=== PATIENT | female | born 2000 | race Caucasian/White ===

== ENCOUNTER 2024-09-09 10:00 | Emergency (ER) | payer OTHER, SELFPAY ==
[2024-09-09 10:11] VITALS: BP 121/60; PULSE 88; RESP 16; TEMP 36.6; O2SAT 100
[2024-09-09 10:16] VITALS: BP 121/60; PULSE 88; RESP 16; TEMP 36.6; O2SAT 100
--- NOTE | 2024-09-09 11:02 | ED_ITS ---
HPI - URI/Sore Throat General Chief Complaint: Upper Respiratory Infection Stated Complaint: cough and chest pain Time Seen by Provider: 09/09/24 10:32 Source: patient and RN notes reviewed Mode of arrival: ambulatory Limitations: no limitations History of Present Illness HPI Narrative: Patient presents today complaining of a one-month history of cold symptoms. She was seen initially, diagnosed with a sinus infection, and prescribed a course of Augmentin which she finished approximately 6 days ago. Five days ago her cough worsened. She also has persistent nasal congestion and headache. She has been taking Mucinex DM and using cough drops with very mild relief. Denies shortness of breath or fever. She is currently 22 weeks Related Data Home Medications Medication Instructions Recorded Confirmed sertraline 100 mg tablet 100 mg DAILY 09/09/24 09/09/24 Allergies Allergy/AdvReac Type Severity Reaction Status Date / Time latex Allergy Hives Verified 09/09/24 10:15 Review of Systems Review of Systems: CONSTITUTIONAL: Denies body aches, fever, chills, or sweats. EYES: Denies visual changes, redness, or discharge. ENT: Denies rhinorrhea, sore throat, or otalgia.+ congestion CARDIOVASCULAR: Denies chest pain, palpitations, or edema. RESPIRATORY: Denies dyspnea.+ cough GASTROINTESTINAL: Denies abdominal pain, nausea, vomiting, or diarrhea. GENITOURINARY: Denies dysuria or hematuria. SKIN: Denies rash, itching, or wounds. MUSCULOSKELETAL: Denies back pain, joint pain, or myalgia. NEUROLOGIC: Denies numbness, tingling, or weakness.+ headache PSYCH: Denies depression or anxiety. PMFSH Comments At time of signature, I have reviewed and agree with nursing past medical, surgical, social and family history unless otherwise noted. Please see nursing chart for further information. There is no relevant family history pertinent to the presenting complaint Exam 2 Narrative: GENERAL: Mildly ill-appearing, well-nourished, and in no acute distress. HEAD: Normocephalic, atraumatic. EYES: EOMI. No redness or drainage. Conjunctivae normal. ENT: Mucous membranes pink and moist. Nares congested. No rhinorrhea. TMs normal bilaterally. Throat normal. Uvula midline. NECK: Normal AROM. Supple. No lymphadenopathy. CHEST: No respiratory distress. Clear to auscultation. Frequent very harsh, loud cough. HEART: Regular rate and rhythm. No murmur appreciated. Normal peripheral pulses. ABDOMEN: Soft, nontender, nondistended, normal active bowel sounds. MUSCULOSKELETAL: No bony tenderness. EXTREMITIES: Normal range of motion. No edema. SKIN: Warm, dry, no rash. Capillary refill normal. Normal skin turgor. NEURO: No focal deficits. Alert and oriented x3. Gait steady. PSYCH: Normal affect. No signs of depression or anxiety. Course Course Level of Care: Express Care Visit Vital Signs Vital signs: Vital Signs Temperature 97.9 F 09/09/24 10:11 Pulse Rate 88 09/09/24 10:11 Respiratory Rate 16 09/09/24 10:11 Blood Pressure 121/60 09/09/24 10:11 Pulse Oximetry 100 09/09/24 10:11 Oxygen Delivery Room Air 09/09/24 10:11 Temperature 97.9 F 09/09/24 10:16 Pulse Rate 88 09/09/24 10:16 Respiratory Rate 16 09/09/24 10:16 Blood Pressure 121/60 09/09/24 10:16 Pulse Oximetry 100 09/09/24 10:16 Oxygen Delivery Room Air 09/09/24 10:16 Reviewed MDM - URI/Sore Throat MDM Narrative Medical decision making narrative: Patient will be treated with a course of azithromycin and a Medrol Dosepak for possible atypical pneumonia and bronchitis. Anticipatory guidance given. Differential Diagnosis Differential diagnosis: Likely upper respiratory infection, sinusitis, viral infection, bronchitis and other (Pneumonia) Critical Care Time Critical Care Time Critical Care Time: No Discharge Plan Discharge Clinical Impression: Lower respiratory infection Patient Disposition: Home, Self-Care Condition: Stable Instructions: Acute Bronchitis (ED) Additional Instructions: Please take the Medrol Dosepak and azithromycin as directed. Rest and stay hydrated. Follow-up with your PCP or OBGYN in 2-3 days if symptoms are not improving. Your blood pressure was elevated above 120/80 today at Urgent Care. This puts you above the threshold for follow up. Please schedule a followup visit with your personal physician as soon as possible, for further evaluation and treatment. Even blood pressure exceeding 120/80 may indicate pre-hypertension. Prescriptions: New azithromycin 250 mg tablet 250 mg PO DAILY Qty: 6 0RF Rx Instructions: take 500 mg today (day 1), then 250 mg daily on days 2-5. methylprednisolone [Medrol (Michael)] 4 mg tablets,dose pack See Rx Instructions .ROUTE .COMPLEX Qty: 21 0RF Rx Instructions: orally per package directions No Action sertraline 100 mg tablet 100 mg DAILY Follow-up/Referrals: PHYSICIAN,[employer] [Primary Care Provider] - Time of Disposition: 11:00
== END 2024-09-09 11:03 | disposition home or self-care (01) ==
PROVIDERS: Emergency Provider Nurse Practitioner
DX: O99.512 Diseases of the respiratory system complicating pregnancy, second trimester (principal); Z3A.22 22 weeks gestation of pregnancy; J22 Unspecified acute lower respiratory infection
CPT/HCPCS: 99203; G0463

== ENCOUNTER 2025-05-04 19:43 | Emergency (ER) | payer OTHER, SELFPAY ==
--- NOTE | ~2025-05-04 | XR_ITS ---
EXAM: XR foot RT min 3V DATE: 05/04/2025 20:01 HISTORY: fell, pain 4th and 5th mid metatarsals . COMPARISON: None available. FINDINGS: Normal mineralization. Cortical irregularity/lucency over the cuboid. No lytic or blastic lesion. Joint spaces are maintained. No erosion or periosteal change. Soft tissues within normal limi ts. IMPRESSION: Possible nondisplaced cuboid fracture. Reviewed, dictated and finalized at location K.
--- OUTSIDE RECORDS SUMMARY | 2025-05-04 19:45 | XMS_ITS | Clinical Summary ---
Author Organization [facility] Address [address] [place] [address] Care Team Providers Care Supervisor Liquefaction Name Role Phone None, Provider MD Primary Care Provider Unavaila ble Allergies Active Allergy Reactions Criticality Noted Date Comments Latex Unknown 06/24/2022 Medications LESSINA-28 0.1-20 MG-MCG tabletIndicatio ns:PCOS (polycystic ovarian syndrome) Take 1 tablet by mouth daily. 84 tablet 3 1 Active metFORMIN 500 MG tabletIndicatio ns:PCOS (polycystic ovarian syndrome) Take 1 tablet (500 mg total) by mouth 2 (two) times daily. 180 tablet 3 1 Active sertraline (ZOLOFT) 50 MG tabletIndicatio ns:Anxiety,Recu rrent major depressive disorder, in partial remission Take 1 tablet (50 mg total) by mouth daily. 30 tablet 1 1 Active Additional Information Patient taking differently: 100 mgOral Daily, Reported on 06/24/2022 fluticasone propionate (FLONASE) 50 MCG/ACT nasal spray 1-2 sprays by Nasal route daily. 1-2 sprays in each nostril qd; Start: 2 sprays in each nostril qd x1wk; Max: 2 sprays in each nostril/day 16 g 2 Active Active Problems Problem Noted Date Diagnosed Date Closed nondisplaced fracture of neck of right ta jyoti 01/31/2018 Immunizations Immunization Administration Dates Next Due Comvax 01/03/2002 DTaP (Daptacel) 03/07/2007, 3,01/03/2002,05/2002,2001 Hepatitis A (Generic) 04/28/2017,06/20/2013 Hepatitis B 04/28/2017,2001,2001 Hib (Generic) 03/22/2013, 3,2001,08/05 Influenza (Generic) 07/21/2018, 7,07/11/2015,08/03,07/17/2013 MENINGOCOCCAL A C Y&W-135 oligosaccharide (MENVEO) 06/20/2013 MMR 07/09/2002 Menactra 06/28/2019 Meningcoccal Group B (Bexser o)(aka Meningitis) 06/28/2019 Pneumococcal (Prevnar 7) 10/09/2002,12/2001,2001,08/05 Polio IPV (Ipol) 03/08/2007, 3,2001,08/05 Tdap (Adacel) 03/22/2013 Varicella Vaccine 07/09/2002 Varicella/MMR (Proquad) 03/07/2007 Family History Medical History Relation Comments Anxiety Maternal Aunt Heart Disease Maternal Grandfather Diabetes Maternal Grandmother Heart Disease Maternal Grandmother Anxiety Maternal Uncle Anxiety Mother Mental Health Paternal Aunt Diabetes Paternal Grandfather Heart Disease Paternal Grandfather Relation Status Comments Maternal Aunt Maternal Grandfather Maternal Grandmother Maternal Uncle Mother Paternal Aunt Paternal Grandfather Social History Tobacco Use Types Packs/Day Years Used Date Smoking Tobacco: Never Smokeless Tobacco: Never Tobacco Cessation:Counseling Given: No Alcohol Use Standard Drinks/Week Comments No 0 (1 standard drink = 0.6 oz pur e alcohol) AUDIT-C Answer Date Recorded Frequency of Alcohol Consumption Never 09/20/2018 Average Number of Drinks Not on file 018 Frequency of Binge Drinking Not on file 09/02 PHQ-2 Answer Date Recorded PHQ-2 Score - If the patient scores above 3, please move on to questions 3-9 0 08/14/2021 Comments No Sex and Gender Information Value Date Recorded Sex Assigned at Not on file Legal Sex Female 5:35 PM CDT Gender Identity Not on file Sexual Orientation Not on file Last Filed Vital Signs Vital Sign Reading Time Taken Comments Blood Pressure 142/82 07/19/2022 1:20 PM CDT Pulse 76 07/19/2022 1:20 PM CDT Temperature 36.8 C (98.2 F) 07/19/2022 1:20 PM CDT Respiratory Rate 18 07/19/2022 1:20 PM CDT Oxygen Saturation 98% 07/19/2022 1:20 PM CDT Inhaled Oxygen Concentration - - Weight 86.2 kg (190 lb) 07/19/2022 1:20 PM CDT Height 162.6 cm (5' 4) 07/19/2022 1:20 PM CDT Body Mass Index 32.61 07/19/2022 1:20 PM CDT Plan of Treatment Health Maintenance Due Date Last Done Comments Cervical Cancer Screening Pap Smear (Age 21 to 29) Every 3 Years 2001 Cervical Cancer Screening 2001 HPV Vaccines (1 - 3-dose series) 2016 Hepatitis C 2019 Meningococcal B Vaccine (2 of 2 - Bexsero SCDM 2-dose series) 12/27/2019 06/28/2019 Annual Physical 05/22/2021 05/22/2020 DTaP, Tdap and Td Vaccines (7 - Td or Tdap) 03/22/2023 03/22/2013, 03/07/2007, 10/09/2002, Additional history exists COVID-19 Vaccine ( season) 2024 Pneumococcal Vaccine: Pediatrics (0 to 5 Years) and At-Risk Patients (6 to 49 Years) Aged Out 10/09/2002, 01/03/2002, 2001, Additional history exists No longer eligible based on patient's age to complete this topic Hepatitis B Vaccines Completed 04/28/2017, 01/03/2002, 2001, Additional history exists Meningococcal Vaccine Completed 06/28/2019, 013 RSV Immunizations Under 20 Months Aged Out No longer eligible based on patient's age to complete this topic Insurance [facility] Care Teams Supervisor Liquefaction Relationship Specialty Start Date End Date None, Provider, PCP - General 06/24/22
--- OUTSIDE RECORDS SUMMARY | 2025-05-04 19:45 | XMS_ITS | Clinical Summary ---
Author Organization [facility] at [facility] Office Building Address [address] [place] [id number] Care Team Providers Care Metallurgical Engineering Technician Name Role Phone No, Physician Primary Care Provider [phone] Mallory Barker CHIROPRACTIC NEUROLOGIST Unavailable [phone] [phone] Active Allergy Reactions Criticality Noted Date Comments Latex Hives Medium 08/06/2022 Medications vit [id number] lopez 27mg iron- 800 mcg-250 mg capsule Take by mouth Active acetaminophen 500 mg capsule Take 2 capsules (1,000 mg total) by mouth every 6 (six) hours as needed for pain 30 tablet 1 12/30/2024 Active ibuprofen (ADVIL,MOTRIN) 800 mg tabletIndicatio ns:Cramps Take 1 tablet (800 mg total) by mouth every 8 (eight) hours as needed for pain 30 tablet 1 12/30/2024 Active sertraline (ZOLOFT) 100 mg tabletIndicatio ns:Anxiety in in first trimester, antepartum TAKE 1 TABLET(100 MG) BY MOUTH DAILY 30 tablet 4 03/04/2025 Active Active Problems Problem Noted Date Diagnosed Date Hx of section 08/29/2024 Acute nonintractable headache 11/15/2023 PCOS (polycystic ovarian syndrome) 08/06/2022 Obesity (BMI 30-39.9) 08/06/2022 Recurrent UTI 08/06/2022 Generalized anxiety disorder 10/28/2021 Resolved Problems Problem Noted Date Diagnosed Date Resolved Date Full-term premature rupture of membranes with onset of labor more than 24 hours following rupture 12/28/2024 12/30/2024 Overview (12/30/2024): 12/28/2024 (Nicci): Patient experienced a large gush of fluid overnight at home, and continued to leak fluid over a few hours. Eventually, the leaking fluid slowed down and labor had not started. She called this morning and asked to come in for evaluation. On bedside ultrasound there does appear to be a reasonable amount of residual amniotic fluid. On speculum exam there was no pooling and a ROM plus was negative. However, we had the patient put on a pad and start walking around and immediately began obviously leaking fluid. Delivery with history of 12/28/2024 12/30/2024 37 weeks gestation of 12/28/2024 12/30/2024 Supervision of other normal , antepartum 06/13/2024 12/30/2024 Overview (12/30/2024): Surveillance of - Only sees Dr. Chapa and Dr. Grajeda EDC by LMP = 9wk US O+/I/-/-, HepC, HIV NR Genetics: Declines Anatomy: 08/29 - incomplete heart/face/profile views, normal, LGA (91%ile), posterior placenta. (/) EFW 81%, anatomy complete. GCT: 125 3rd trim 11.1/33.9, NR/NR Tdap: 11/07 GBS: Negative 12/19 COVID Vaccine: received. Flu declined. 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 - has formulated a vaginal and belly /C/S plans - will review and scan to chart at next visit (12/05) Desires intermittent monitoring until active labor - ok with remote novi monitoring if working or additional monitoring for any concerns Ok with epidural - but does not want till active labor as wants to be able to move around as much as possible in labor; understands risk that if were to need emergent C/S limits it to general anesthesia Post pre-E in prior : baseline labs - normal; recc dASA @ 12 wks Anxiety: Zoloft 100 mg daily, sees therapist, exacerbation with short-interval and prior traumatic experience. May consider increasing dose - continue to reassess. Obesity - initial BMI 34: Counseled 06/13; declines early GCT since she did not have GDM last and is more active and eats better now. (2/) EFW 80%; declines further growth USs Hx LTCS - 11/10/2023 for arrest @ 9.5 cm/Short-interval Somewhat traumatic experience: arrest after >48 of induction, QBL 1170 > blood tx, spinal headache > blood patch. Rupture risk 2-3% with short interval less than 6 months; calculated chance of successful TOLAC 50% based on history. Counseled on risks/benefits. Desires no more children after this . Postoperative spinal headache 11/13/2023 08/01/2024 Overview (11/13/2023): Status post 11/12/2023 blood patch care following delivery 11/11/2023 08/01/2024 Overview (11/13/2023): 11/11/2023, POD# 1 status post primary LT CS for arrest of labor (Nicci): QBL 1170 Hemoglobin 10.9 > 8.4 > 8.0 > iron infusion > 7.1 > 1u PRBC ordered Continues to feel extremely weak. Additionally, when she sits or stands up, she develops a significant headache and nausea, sometimes to the point of emesis. Will request anesthesia consult for possible spinal headache. Already pushing caffeine this morning. Tolerating small amounts of p.o.. Clay remains in due to not feeling well when she gets out of bed. Pain controlled. Bleeding normal. AF VSS Otherwise continue routine post care 11/12/2023, POD# 2 (Nicci): Post transfusion hemoglobin 8.9. Only major complaint is that she continues to have a terrible headache associated with nausea whenever she moves from lying to upright. Yesterday thought it might be getting better, but remains persistent to the point that she can not be upright long enough to shower, walk around, or enjoy holding her baby. Getting quite frustrated. Anesthesia to reassess today for blood patch. Feeling better on all other counts AF VSS Normal exam Initiate SCDs while lying down 11/13/2023, POD 3 (Nicci): Patient had blood patch performed yesterday with immediate improvement in symptoms. Feeling great today. Ambulating, voiding, tolerating regular diet, pain controlled. AF VSS WNL Normal exam Stable for discharge Routine discharge precautions Follow-up this week in the office to remove dressing Acute blood loss anemia 11/11/202307/05 39 weeks gestation of 11/08/2023 11/13/2023 Encounter for elective induction of labor 11/07/2023 11/13/2023 Overview (11/13/2023): 11/07/23, 2246 (KR) 23 y/o at 38w6d gestation here for IOL AFVSS GBS negative SVE Plan to initiate induction with misoprostol 25mcg PV LGA fetus: last EFW 97%ile. Patient has been counseled on risks in clinic. Pain management per patient's wishes 11/08/2023, 0830 (NEETA): FHT and maternal status reassuring VSS, AF Induction initiated with Cervidil per pt request SVE and membrane sweep per pt request - 1. BSUS - vertex Consider cervical ripening balloon with LD OT Pain management per pt wishes 11/08/2023, 1245 (NEETA): VSS,AF FHT cat 1 S/p 12 hrs of cervical ripening - Cervidil removed SVE and membrane sweep with consent: OT ordered - titrate as tolerated and per protocol Continue with induction of labor 11/08/2023, 1930 (NEETA): VSS, AF Maternal and status reassuring OT infusing at 10mu/hr - will titrate as tolerated Plan to titrate slowly and decrease or turn off when in active labor SVE per pt request: , anterior Consider AROM when able Encouraged to rest when able and discussed position changes and movement 11/09/2023 0845 (CZ) VSS, afebrile Reactive tracing SVE: 3.5/70/-2 AROM performed with patient consent - moderate amount of clear odorless fluid noted on exam. Patient requesting to d/c OT for awhile after AROM. Plan to re-evaluate in a few hours, and restart OT if not cervical change. Okay for intermittent monitoring after 30 minute tracing Anticipate 11/09/2023 1230 (CZ) VSS, afebrile Reactive tracing SVE: 4/80/-1 Patient pumping and membranes stripped Discussed importance of starting OT again Patient would like to pump for a an hour or so and then start pit. Facilitate frequent position changes Anticipate 11/09/2023 2306 (CZ) VSS, afebrile Comfortable with epidural SVE:8.5/90/[address] OT infusing, currently @ 12 Category 2 tracing Continue OT titration as needed, and frequent position changes Anticipate 11/10/2023 0207 (CZ) VSS, afebrile Patient is not comfortable with epidural, but declines bolus due to inability to have control over her body. Intermittent category two tracing, resolves with position changes. SVE 9.5/100/1 with swollen anterior lip, unable to reduce/push past Recommend benadryl to help decrease swelling. Patient declines because benadryl makes her too tired. Patient reports she is over all of this and just wants a . Dr. Chapa notified OT discontinued Prep for cesearean 11/10/23 @ 02:45 (BD): - has been 9-9.5cm for the last 4 hours with adequate ctxs with now a swelling cervix and OP position - pt declines to proceed with any further induction management including attempting benadryl for cervical swelling and maternal repositioning/rotational maneuvers for position. She would like to proceed with pC/S. 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 Datinst T US Labs: O+/I/-/-/HIV RPR NR Early 1 hr: 131, 3 hr incomplete due to emesis > reviewed that given just barely elevated - okay to defer repeat attempt at 3 hr and complete 3 hr at 28 weeks gestation Genetics: declined Anatomy: complete AGA, 74%, posterior placenta Placenta: posterior GCT: 3 hour pass 3T labs: Normal Tdap: 09/22 GBS: Negative COVID Vaccine: Flu vaccine: Social Barriers: none Method of feeding: breast Method of contraception: Undecided Delivery Planning: to be discussed - trying to decide on exp management vs. IOL based on size. Does not want epidural. Has code word for if she changes her mind. Luna. Obesity (BMI 33): Early 1 hr 131, unable to complete 3 hr. LGA: S>D (09/06), US (09/22) 93%ile, DAKOTAH 21, (10/18) EFW 97% Counseled on LGA fetus risks 09/22 Anxiety: Zoloft 100 mg daily, s/p counseling on risks in Increased dose to 125 mg daily Discussed adding Buspar - pt declines d/t bothersome effects in the past Consider hydroxyzine Recommend therapy - referral list sent via CUPS GAD7: 9 (09/22), discussed with patient option to increase medication - declines at this time. (11/03) stable Encounters Date Type Department Care Team Description 02/13/2025 1:30 PM CDT Office Visit [facility] Obstetrical Gynecology [address] [place] [address] [place] [phone] Claudio Grajeda MD Encounter for visit (Primary Dx) from Last 3 Months Immunizations Immunization Administration Dates Next Due DTaP 5 Pertussis 03/07/2007, 3,01/03/2002,2001 ,2001 Hep A, Unspecified 04/28/2017,06/20/2013 Hep B / HiB 01/03/2002 Hep B, Unspecified 04/28/2017,2001, 001 HiB 03/22/2013,10/09/2002,2001 ,2001 IPV 03/08/2007,10/09/2002,2001 ,2001 Influenza, Unspecified 07/21/2018,2016,07/11/2015,08/13/2014 ,07/17/2013 MMR 11/12/2023(Deferred: No longer needed - rubella immune),07/09/2002 MMRV 03/07/2007 Meningococcal B, OMV (Bexsero) 06/28/2019 Meningococcal Conjugate (Menveo) 06/20/2013 Meningococcal MCV4P (Menactra) 06/28/2019 Pneumococcal Conjugate 7-Valent 10/09/2002,01/03,2001,2001 Tdap 11/07/2024,09/22/2023,03/22/2013 Varicella 12/30/2024(Deferred: No longer needed),11/12/2023(Deferred: No longer needed - pt has had vaccine previously),07/09/2002 Surgical History Surgery Date Site/Laterality Comments MOLE REMOVAL vulvar SECTION 10/03/2023 - 10/02/2024 Medical History Medical History Date Comments Anxiety Polycystic ovary syndrome Pre-eclampsia in period History of transfusion Family History Medical History Relation Name Comments No Known Problems Father Diabetes Maternal Grandmother No Known Problems Mother Breast cancer Mother's Sister Diabetes Paternal Grandfather Hyperlipidemia Neg Hx Hypertension Neg Hx Ovarian cancer Neg Hx Uterine cancer Neg Hx Relation Name Status Comments Father Alive Maternal Grandmother Mother Alive Mother's Sister Paternal Grandfather Social History Tobacco Use Types Packs/Day Years Used Date Smoking Tobacco: Never Tobacco Cessation:Counseling Given: Not Answered Social Connection and Isolat ion Panel [NHANES] Answer Date Recorded In a typical week, how many times do you talk on the phone with family, friends, or neighbors? More than three times a week 12/28/2024 How often do you get togethe r with friends or relatives? More than three times a week 12/28/2024 How often do you attend chur ch or mormon services? More than 4 times per year 12/28/2024 Do you belong to any clubs o r organizations such as buddhism groups, unions, fraternal or athletic groups, or school groups? Yes 12/28/2024 How often do you attend meet ings of the clubs or organizations you belong to? More than 4 times per year 12/28/2024 Are you , , di vorced, , never , or living with a partner? 12/28/2024 AUDIT-C Answer Date Recorded Q1: How often do you have a drink containing alcohol? Never 12/28/2024 Q2: How many drinks containi ng alcohol do you have on a typical day when you are drinking? Patient does not drink Q3: How often do you have si x or more drinks on one occasion? Never 12/28/2024 Overall Financial Resource Strain (CARDIA) Answe r Date Recorded How hard is it for you to pa y for the very basics like food, housing, medical care, and heating? Not hard at all 12/28/2024 PHQ-2 Answer Date Recorded PHQ-2 Total Score (If total score is 3 or more points, staff should administer the PHQ-9) 0 12/28/2024 [facility] - Occupational Stress Questionnaire Answer Date Recorded Do you feel stress - tense, restless, nervous, or anxious, or unable to sleep at night because your mind is troubled all the time - these days? Only a little 12/28/2024 Exercise Vital Sign Answer Date Recorde d On average, how many days pe r week do you engage in moderate to strenuous exercise (like a brisk walk)? 2 days 12/28/2024 On average, how many minutes do you engage in exercise at this level? 20 min 12/28/2024 Hunger Vital Sign Answer Date Recorded Within the past 12 months, y ou worried that your food would run out before you got the money to buy more. Never true 12/29/19 25 Within the past 12 months, t he food you bought just didn't last and you didn't have money to get more. Never true 12/28/2024 PRAPARE - Transportation Answer Date Re corded In the past 12 months, has l ack of transportation kept you from medical appointments or from getting medications? No 12/02 In the past 12 months, has l ack of transportation kept you from meetings, work, or from getting things needed for daily living? No 12/28/2024 English Depression Scale Answer Date Recorded English Depression Scale Total 4 02/13/2025 The thought of harming myself has occurred to me . Never 02/13/2025 PHQ-9 Answer Date Recorded PHQ-9 Total Score 0 12/28/2024 Housing Stability Vital Sign Answer Dennis e Recorded In the last 12 months, was t here a time when you were not able to pay the mortgage or rent on time? No 12/28/2024 In the past 12 months, how m any times have you moved where you were living? 0 12/28/2024 At any time in the past 12 [facility], were you homeless or living in a half-way (including now)? No 12/28/2024 Personal Safety Answer Date Recorded Have you ever been in or are you currently in a harmful physical or emotional relationship or is someone making you feel afraid or unsafe? Denies 12/28/2024 Comments No Sex and Gender Information Value Date Recorded Sex Assigned at Not on file Legal Sex Female 12:26 PM CDT Gender Identity Not on file Sexual Orientation Not on file Obstetrics History Para Term AB IAB SAB Ectopic Multiple Livin g Live Births 2 2 2 0 0 0 2 2 Date Outcome GA Total Labor Labor/2nd/3rd Weight Sex Type Anes PTL Kerline A1 A5 Name Clin 2023 Term 39w 2d 3.71 kg (8 lb 2.9 oz) M C-Sec tion Epidur al N Livin g 8 9 [place] Kimberley Long am, MD Complications:Other Excessiv e Bleeding Delivery Location:[facility] Main C ampus ([facility]) 2024 Term 37w 3d 0h 03m 0h 03m 3.23 kg (7 lb 1.9 oz) F C-Sec tion Spinal Livin g 4 3 GirlEm nancy Molina, Claudio Barr MD Complications:None Delivery Location:[facility] Main C ampus (E L AND D PROCEDURE) Comments First : arrest afte r >48 of induction, QBL 1170 > blood tx, spinal headache > blood patch. Last Filed Vital Signs Vital Sign Reading Time Taken Comments Blood Pressure 116/62 02/13/2025 1:50 PM CDT Pulse 56 12/30/2024 8:20 AM CDT Temperature 36.6 C (97.9 F) 12/30/2024 8:20 AM CDT Respiratory Rate 18 12/30/2024 8:20 AM CDT Oxygen Saturation 100% 12/29/2024 6:01 PM CDT Inhaled Oxygen Concentration - - Weight 89.7 kg (197 lb 12.8 oz) 02/13/2025 1:50 PM CDT Height 165.1 cm (5' 5) 02/13/2025 1:50 PM CDT Body Mass Index 32.92 02/13/2025 1:50 PM CDT Plan of Treatment Health Maintenance Due Date Last Done Comments HPV Vaccines (1 - 3-dose series) 2016 Meningococcal B Vaccine (2 o f 2 - Bexsero SCDM 2-dose series) 12/27/2019 06/28/2019 Cervical Cancer Screening 08/06/2023 08/06/2022 Regular Well Visit/Exam 18-64 08/06/2023 08/06/2022 Covid-19 Vaccine (3 - 2023-2 5 season) 2024 06/12/2021, 05/15/2021 Influenza Vaccine (#1) 2025 8, 08/09/2017, 07/11/2015, Additional history exists Chlamydia and Gonorrhea (GC/ CT) Screening 06/13/2025 06/13/2024, 03/25/2023, 08/06/2022 Depression Screening 02/13/2026 02/13/2025, 11/22/2024, 11/22/2024 DTaP/Tdap/Td Vaccine (10 - T d or Tdap) 11/07/2034 11/07/2024, 09/22/2023, 09/01/2022, Additional history exists Pneumococcal vaccine <65 Completed 003, 01/03/2002, 2001, Additional history exists Varicella Vaccines Completed 03/07/2007, 07/09/2002 Hepatitis B Screening Completed 04/28/2017 , 01/03/2002, 2001, Additional history exists Hepatitis C Screening Completed 05/25/2024, 023 Goals Goal Patient Goal Type Associated Problems Recent Progress Patient-Stated? Author Reminders Care Plan OB Reminders No Open Scheduling, Background Procedures Procedure Name Priority Date/Time Associated Diagnosis Comments N. GONORRHOEAE/C. TRACHOMATIS AMPLIFICATION Routine 06/13/2024 11:15 AM CDT Screen for STD (sexually transmitted disease) Obesity affecting in first trimester, unspecified obesity type HEPATITIS C ANTIBODY Routine 05/25/2024 1:38 PM CDT Missed menses PAP WITH REFLEX TO HIGH RISK HPV Routine 08/06/2022 11:00 AM CDT Well woman exam from Last 3 Months or Most Recently Relevant to Health Maintenance Results * N. gonorrhoeae/C. trachomatis Amplification Urine (06/13/2024 11:15 AM CDT) C. trachomatis Not Detected [facility] Comment:Testing performed by : [facility], [address] [place] [address]., [id number] N. gonorrhoeae Not Detected [facility] Comment: Interpretive Data This assay detects Chlamydia trachomatis and Neisseria gonorrhoeae by nucleic acid amplification testing (NAAT). This assay has been cleared by the [place] Food and Drug administration. The performance characteristics of this test have been verified by the [facility] Molecular Infectious Disease laboratory. The performance characteristics of this test have not been evaluated in individuals less than 14 years of age. Current Interpretive Data was last revised on 2023. Testing performed by: [facility], [address] [place] [address]., [id number] Urine (None) 06/13/2024 11:1 5 AM CDT 06/13/2024 11:45 PM CDT us Claudio Grajeda MD LAB MICROBIOLOGY - GENERAL ORDERABLES Final Result [facility] [address] [facility] Department [place] [address] [facility] * Hepatitis C antibody Blood (05/25/2024 1:38 PM CDT) Hep C Ab Nonreactive Nonreactive Comment: Antibodies to HCV not detected. Does NOT exclude the possibility of recent exposure to HCV. Current interpretive data was last revised on 22 Interpretive Data Nonreactive: Antibodies to HCV not detected. Does NOT exclude the possibility of recent exposure to HCV. Equivocal: Equivocal for HCV antibodies. Supplemental molecular testing will be automatically performed to determine infection status in accordance with current CDC screening recommendations. Reactive: Positive for HCV antibodies. This may represent current or past HCV infection. Supplemental molecular testing will be automatically performed to determine current infection status in accordance with current CDC screening recommendations. Interpretive data was last revised on 2019. Blood 05/25/2024 1:38 PM CDT 05/25/2024 6:32 PM CDT us Noe Chapa MD LAB MICROBIOLOGY - GENER AL ORDERABLES Edited Result - Final [facility] Department [place] [address] * Pap with reflex to High Risk HPV (08/06/2022 11:00 AM CDT) Thin prep (Pap test) 08/06/2022 11:00 AM CDT 08/06/2022 11:00 AM CDT Narrative PATHOLOGY [facility] - 08/10/2022 11:54 AM RUBBER COMPOUNDER MIXER [facility] Department of Pathology [address] [place] [address] Final Report Note to Patients: This report may contain a detailed description of human tissue sent by a health care provider to the laboratory for pathologic evaluation. The content of this report is essential for diagnosis and may provide important critical findings. This information may be unfamiliar to patients to review without a medical professional present. It is advised that the patient review this report in the presence of a health care provider who can answer questions and explain the details. Patient Name: AUSTYN MILLAN Address: [address] [place] [id number] Gender: F : 2000 (Age: 22) Service: Laboratory Location: [facility] #: [id number] Patient Type: [facility] SPECIMEN Taken: 08/06/2022 Received: 08/06/2022 Accessioned:: 08/09/2022 Reported: 08/10/2022 Physician(s): Gretchen Holden M.D. [facility] Diagnosis: Source of Specimen: Imaged Thinprep Pap Test w/ Reflex HPV - Procurement Specialist Cytologic Material Specimen Adequacy: - Satisfactory for evaluation; endocervical/transformation zone component present General Category: - Negative for intraepithelial lesion or malignancy Interpretation/Results: - Numerous inflammatory cells present ALLEN Schmidt(ASCP) Report Electronically Reviewed and Signed Out By ALLEN Schmidt(ASCP) 08/10/2022 11:54:25Specimen(s) Received: A: Imaged Thinprep Pap Test w/ Reflex HPV - Procurement Specialist Cytologic Material Clinical History: Last Menstrual Period: 07/21/2022 The Pap test is a screening test used to aid in the detection of cervical cancer and its precursors. It should not be the sole means by which malignant and premalignant lesions are diagnosed. Both false negative and false positive results may occur. It also has poor sensitivity for the detection of endometrial lesions and should not be used to evaluate suspected endometrial abnormalities. For these reasons it is most important to obtain Pap tests at regular intervals. The performance characteristics of some immunohistochemical stains, fluorescence in-situ hybridization tests and immunophenotyping by flow cytometry cited in this report (if any) were determined by the Surgical Pathology Department at [facility] as part of an ongoing quality assurance assessor program and in compliance with federally mandated regulations drawn from the Clinical Laboratory Improvement Act of 1988 (CLIA '88). Some of these tests rely on the use of analyte specific reagents and are subject to specific labeling requirements by the [place] Food and Drug Administration. Such diagnostic tests may only be performed in a facility that is certified by the Department of Health and Human Services as a high complexity laboratory under CLIA '88. The FDA has determined that such clearance or approval is not necessary. This test is used for clinical purposes. It should not be regarded as investigational or for research. Nevertheless, federal rules concerning the medical use of analyte specific reagents require that the following disclaimer be attached to the report: This test was developed and its performance characteristics determined by the Surgical Pathology Department [facility]. It has not been cleared or approved by the U. S. Food and Drug Administration. Alie Holden MD LAB CYTOLOGY ORDERABLES [facility] Result PATHOLOGY [facility] from Last 3 Months or Most Recently Relevant to Health Maintenance Additional Health Concerns Active Problems Noted Date Diagnosed Date OB Reminders 10/24/2024 Insurance [id number] [facility] [address] [place] [id number] [facility] CHOICE PLUS [facility] CHOICE PLUS Advance Directives For more information, please contact: [phone] * Full Code (Latest Code Status on File) Date Activated Date Inactivated Comments 12/28/2024 2:43 PM 12/30/2024 3:52 PM * Full Code Date Activated Date Inactivated Comments 12/28/2024 11:17 AM 12/28/2024 2:43 PM Full CPR in case of cardiopulmonary arrest * Full Code Date Activated Date Inactivated Comments 11/15/2023 1:50 PM 11/16/2023 7:33 PM * Full Code Date Activated Date Inactivated Comments 11/10/2023 5:41 AM 11/13/2023 3:36 PM * Full Code Date Activated Date Inactivated Comments 11/07/2023 10:45 PM 11/10/2023 5:41 AM Full CPR in c ase of cardiopulmonary arrest Care Teams Metallurgical Engineering Technician Relationship Specialty Start Date End Date No, Physician PCP - General 07/06/22 Mallory Barker NP 07/06/22
--- OUTSIDE RECORDS SUMMARY | 2025-05-04 19:45 | XMS_ITS | Referral Summary ---
Author Organization [facility] Address [address] [place] [id number] Care Team Providers Care Railroad Signal And Switch Operator Name Role Phone No, Physician Primary Care Provider [phone] Mallory Barker MOBILITY DEVELOPER Unavailable [phone] Encounters Date Type Department Care Team Description 02/13/2025 1:30 PM CDT Office Visit [facility] Obstetrical Gynecology [address] [place] [address] [place] [phone] Claudio Grajeda MD Encounter for visit (Primary Dx) from Last 3 Months Allergies Active Allergy Reactions Criticality Noted Date Comments Latex Hives Medium 08/06/2022 Medications vit 15-kjkz-lrhqe-d lopez 27mg iron- 800 mcg-250 mg capsule [...] if no labor before that Has a caving guide - has formulated a vaginal and belly [...] is more active and eats better now. (11/07) EFW 80%; declines further growth USs Hx [...] of labor 11/07/2023 11/13/2023 Overview (11/13/2023): 11/07/23, 2245 (JOIE) 23 y/o at 38w6d gestation here for IOL AFVSS GBS negative SVE Plan to initiate induction with misoprostol 25mcg PV LGA fetus: last EFW 97%ile. Patient has been counseled on risks in clinic. 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 Datinst T US Labs: O+/I/-/-/HIV RPR [...] word for if she changes her mind. [place]. Obesity (BMI 33): Early 1 hr 131, [...] Recommend therapy - referral list sent via [employer] GAD7: 9 (09/22), discussed with patient option to increase medication - declines at this time. (11/03) stable Immunizations Immunization Administration Dates Next Due DTaP [...] needed - pt has had vaccine previously),07/09/2002 Social History Tobacco Use Types Packs/Day Years [...] often do you attend chur ch or muslim services? More than 4 times per year 12/28/2024 Do you belong to any clubs o r organizations such as baptist groups, unions, fraternal or athletic groups, or [...] staff should administer the PHQ-9) 0 12/28/2024 [facility] - Occupational Stress Questionnaire Answer Date Recorded [...] money to buy more. Never true 12/29/19 Within the past 12 months, t he [...] things needed for daily living? No 12/28/2024 [place] Depression Scale Answer Date Recorded [place] Depression Scale Total 4 02/13/2025 The thought [...] any time in the past 12 m [facility], were you homeless or living in a penitentiary (including now)? No 12/28/2024 Personal Safety Answer [...] 02/13/2025 1:50 PM CDT Plan of Treatment Not on file Goals Goal Patient Goal Type Associated Problems [...] AM CDT) C. trachomatis Not Detected [facility] Comment:Testing performed by : [facility], [address] [place] [address] N. gonorrhoeae Not Detected [facility] Comment: Interpretive Data This assay detects Chlamydia trachomatis and Neisseria gonorrhoeae by nucleic acid amplification testing (NAAT). This assay has been cleared by the [place] Food and Drug administration. The performance characteristics of this test have been verified by the [facility] Molecular Infectious Disease laboratory. The performance characteristics of this test have not been evaluated in individuals less than 14 years of age. Current Interpretive Data was last revised on 2023. Testing performed by: [facility], [address] [place]., [address] Urine (None) 06/13/2024 11:1 5 AM CDT 06/13/2024 11:45 PM CDT Claudio Grajeda MD LAB MICROBIOLOGY - GENERAL ORDERABLES Final Result Performing Organization Address [facility] de Phone Number [facility] [address] [facility] Department [place] [address] [facility] * Hepatitis C antibody Blood (05/25/2024 1:38 PM CDT) Pathologist [facility] Hep C Ab Nonreactive Nonreactive Comment: Antibodies [...] 1:38 PM CDT 05/25/2024 6:32 PM CDT Noe Chapa MD LAB MICROBIOLOGY - GENER AL ORDERABLES Edited Result - Final Performing Organization Address [facility] Co de Phone Number [facility] [address] Department [place] [address] * Pap with reflex to High Risk HPV (08/06/2022 11:00 AM CDT) Thin prep (Pap test) 08/06/2022 11:00 AM CDT 08/06/2022 11:00 AM CDT Narrative PATHOLOGY [facility] - 08/10/2022 11:54 AM MEDICAL PATHOLOGIST [facility] Department of Pathology [address] [place], [place] [id number] Final Report Note to Patients: This report [...] the details. Patient Name: AUSTYN MILLAN Address: [address] [place] [address] [place] [address] Gender: F : 2000 (Age: 22) Service: Laboratory Location: N : [id number] [facility] #: [id number] Patient Type: [facility] SPECIMEN Taken: 08/06/2022 Received: 08/06/2022 Accessioned:: 08/09/2022 Reported: 08/10/2022 Physician(s): Gretchen Holden M.D. [facility] Diagnosis: Source of Specimen: Imaged Thinprep Pap Test w/ Reflex HPV - Textile Machine Operator Cytologic Material Specimen Adequacy: - Satisfactory for evaluation; endocervical/transformation zone component present General Category: - Negative for intraepithelial lesion or malignancy Interpretation/Results: - Numerous inflammatory cells present ALLEN Schmidt(ASCP) Report Electronically Reviewed and Signed Out By ALLEN Schmidt(ASCP) 08/10/2022 11:54:25Specimen(s) Received: A: Imaged Thinprep Pap Test w/ Reflex HPV - Textile Machine Operator Cytologic Material Clinical History: Last Menstrual Period: [...] determined by the Surgical Pathology Department at [facility] as part of an ongoing supplier quality engineer program and in compliance with federally mandated [...] characteristics determined by the Surgical Pathology Department [facility]. It has not been cleared or approved by the [place]. S. Food and Drug Administration. Alie Holden MD LAB CYTOLOGY ORDERABLES Fi [facility] Result PATHOLOGY [facility] from Last 3 Months or Most Recently Relevant to Health Maintenance Additional Health Concerns Active Problems Noted Date Diagnosed Date OB Reminders 10/24/[address] [place] [address] [facility] CHOICE PLUS CHOICE PLUS Advance Directives For more information, please contact: [phone] * Full Code (Latest Code Status on [...] c ase of cardiopulmonary arrest Care Teams Railroad Signal And Switch Operator Relationship Specialty Start Date End Date No, Physician PCP - General 07/06/22 Mallory Barker NP (Fax) 07/06/22
--- OUTSIDE RECORDS SUMMARY | 2025-05-04 19:45 | XMS_ITS | Encounter Summary ---
Author Organization [facility] Address [address] [place] [address] Care Team Providers Care Cnc Lathe Machine Operator Name Role Phone Mallory Barker Primary Care Provider [phone], Provider Primary Care Provider Unavaila ble Encounter Details Date Type Department Care Team (Late st Contact Info) Description 10/29/2021 [employer] Message Enc [facility] Family and Sports Medicine - [place] [address] [place] [address] Mallory Barker APNP [address] [place], [place] [phone] Medication Social History Tobacco Use Types Packs/Day Years Used Date Smoking Tobacco: Never Smokeless Tobacco: Never Alcohol Use Standard Drinks/Week Comments No 0 [...] on file Sexual Orientation Not on file documented as of this encounter Plan of Treatment Not on file documented as of this encounter Visit Diagnoses Not on filedocumented in this encounter Additional Health Concerns Assessment Noted Time PHQ-9 Depression Total Score: 5 08/14/20 21 4:14 PM 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
[2025-05-04 19:54] VITALS: BP 128/82; PULSE 90; RESP 18; TEMP 36.7; O2SAT 100
--- NOTE | 2025-05-04 20:07 | ED.LOWEXIN ---
HPI - Extremity Injury (Lower) General Chief Complaint: Extremity Injury, Lower Stated Complaint: RT foot injury Time Seen by Provider: 05/04/25 20:07 Source: patient Mode of arrival: ambulatory Limitations: no limitations History of Present Illness HPI Narrative: 24-year-old female presents with pain to lateral aspect of right foot with swelling. Patient twisted foot in pothole and parking lot and fell. Pain worse when bearing weight. Range of motion decreased due to pain, distal neurovascularly intact. All systems reviewed and negative except as noted above. Related Data Home Medications ?Medication ?Instructions ?Recorded ?Confirmed ?Last Taken ?Type sertraline 100 mg tablet 150 mg DAILY 09/09/24 09/09/24 Unknown History Allergies Allergy/AdvReac Type Severity Reaction Status Date / Time latex Allergy Hives Verified 05/04/25 19:54 PMFSH Comments At time of signature, agree with nursing past medical, surgical, social and family history. There is no relevant family history pertinent to the presenting complaint. Exam Narrative: GENERAL: This is a well-nourished, well-developed patient, in no apparent distress. HEAD: normocephalic, atraumatic. EYES: PERRL. Sclera clear/white. Vision is grossly intact. EARS: External ears normal NOSE: External nose normal NECK: Neck supple, non-tender without lymphadenopathy, masses or thyromegaly. CARDIOVASCULAR: Regular rate and rhythm without murmurs, gallops, or rubs. RESPIRATORY: Clear to auscultation. Breath sounds equal bilaterally. No wheezes, rales, or rhonchi. SKIN: warm, Dry, intact with no suspicious lesions or rash, good texture and turgor. NEURO: awake, alert, and oriented to person, place and time. There were no obvious focal neurologic abnormalities. EXTREMITIES: Tenderness to lateral aspect of right foot proximal 4th and 5th metatarsals with swelling. Range of motion decreased due to pain, distal neurovascularly intact. No deformity noted. Course Course Level of Care: Express Care Visit Vital Signs Vital signs: Vital Signs Temperature 36.7 C 05/04/25 19:54 Pulse Rate 90 05/04/25 19:54 Respiratory Rate 18 05/04/25 19:54 Blood Pressure 128/82 05/04/25 19:54 Pulse Oximetry 100 05/04/25 19:54 Oxygen Delivery Room Air 08/02/25 19:54 Temperature 36.7 C 05/04/25 19:54 Pulse Rate 90 05/04/25 19:54 Respiratory Rate 18 05/04/25 19:54 Blood Pressure 128/82 05/04/25 19:54 Pulse Oximetry 100 05/04/25 19:54 Oxygen Delivery Room Air 05/04/25 19:54 Reviewed MDM - Extremity Injury (Lower) MDM Narrative Medical decision making narrative: the x-ray of patient's right foot shows possible fracture to cuboid bone. Patient placed in short leg OCL. Neurovascular intact pre and postprocedure. Given crutch training. Refer to orthopedics for follow-up. Differential Diagnosis Differential diagnosis: Likely other ( Right foot sprain, right foot fracture) Imaging Data My impression: Agree with radiologist Radiologist's impression: EXAM: XR foot RT min 3V DATE: 05/04/2025 20:01 HISTORY: fell, pain 4th and 5th mid metatarsals . COMPARISON: None available. FINDINGS: Normal mineralization. Cortical irregularity/lucency over the cuboid. No lytic or blastic lesion. Joint spaces are maintained. No erosion or periosteal change. Soft tissues within normal limits. IMPRESSION: Possible nondisplaced cuboid fracture. Discharge Plan Discharge Clinical Impression: Closed fracture of cuboid of right foot Patient Disposition: Home Condition: Stable Instructions: Foot Fracture in Adults (ED) Additional Instructions: the x-ray of your right foot shows a possible fracture to your cuboid bone. A temporary splint has been placed. Avoid getting the splint wet, cover when showering. Take Tylenol or ibuprofen every 6-8 hours as needed for pain. Elevate when at rest. Call Tuesday morning and schedule follow-up appointment with reading specialist. Patient Language: Spanish Prescriptions: No Action sertraline 100 mg tablet 150 mg DAILY Follow-up/Referrals: Celio Gonzales MD [Physician] - ( Call and schedule follow-up appointment with reading specialist) PHYSICIAN,AUTOMOBILE BODY CUSTOMIZER [Primary Care Provider] - Time of Disposition: 20:31
== END 2025-05-04 20:38 | disposition home or self-care (01) ==
PROVIDERS: Emergency Provider Nurse Practitioner Family
DX: S92.211A Displaced fracture of cuboid bone of right foot, initial encounter for closed fracture (principal); X50.9XXA Other and unspecified overexertion or strenuous movements or postures, initial encounter
CPT/HCPCS: 29515; 73630; 99214; G0463

== ENCOUNTER 2025-09-10 18:49 | Emergency (ER) | payer OTHER, SELFPAY ==
--- NOTE | ~2025-09-10 | XR_ITS ---
EXAMINATION: XR foot LT min 3V DATE: 09/10/2025 19:06 INDICATION: Left foot pain. No mention of trauma. TECHNIQUE: 3 views of the left foot were obtained. COMPARISON: None. FINDINGS: No acute bony lesions of the left foot. Normal alignment at the joints including Lisfranc joints. Soft tissues are unremarkable. 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 IMPRESSION: 1. 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 R CLEANER
--- NOTE | 2025-09-10 18:56 | ED_ITS ---
HPI - Extremity Injury (Lower) General Chief Complaint: Extremity Injury, Lower Stated Complaint: Fall / LT Foot Pain Source: patient and RN notes reviewed Mode of arrival: ambulatory Limitations: no limitations History of Present Illness HPI Narrative: Patient is a 25-year-old female who presents to the [facility] with complaints of left foot pain. Patient states that she was holding her 40 lb dog in her foot slipped off the edge of a sidewalk. She states that she had immediate swelling to the lateral aspect of the left foot. There is notable swelling and bruising at this time. She is neurovascularly intact. Sensation is intact. She denies any other injury. She did not hit her head or lose consciousness. Related Data Home Medications ?Medication ?Instructions ?Recorded ?Confirmed ?Last Taken ?Type sertraline 100 mg tablet 150 mg DAILY 09/09/24 Unknown History Allergies Allergy/AdvReac Type Severity Reaction Status Date / Time latex Allergy Hives Verified 09/10/25 18:59 Review of Systems Review of Systems: CONSTITUTIONAL: Denies fever, chills, or sweats. EYES: Denies visual changes, redness, or discharge. ENT: Denies otalgia and sore throat CARDIOVASCULAR: Denies chest pain, palpitations, or edema. RESPIRATORY: Denies cough or dyspnea. GASTROINTESTINAL: Denies abdominal pain, nausea, vomiting, or diarrhea. GENITOURINARY: Denies dysuria or hematuria. SKIN: Denies rash or itching. MUSCULOSKELETAL: Reports left foot pain and swelling. NEUROLOGIC: Denies headache, numbness, or weakness. Pertinent positives per HPI. PMFSH Comments At the time of my signature, I reviewed and agree with the nursing past medical, surgical, social, and family history. There is no relevant family history pertinent to the patient complaint. Exam Narrative: GENERAL: This is a well-nourished, well-developed patient, in no apparent distress. HEAD: normocephalic, atraumatic. EYES: Sclera clear/white. Vision is grossly intact. EARS: External ears normal. Hearing grossly intact. NOSE: External nose normal with no obvious nasal discharge, nares without redness, no rhinorrhea. THROAT: Mucous membranes moist. NECK: Neck supple, non-tender without lymphadenopathy, masses or thyromegaly. CARDIOVASCULAR: Regular rate and rhythm without murmurs, gallops, or rubs. RESPIRATORY: Clear to auscultation. Breath sounds equal bilaterally. No wheezes, rales, or rhonchi. GASTROINTESTINAL: Abdomen soft, non-tender, nondistended. Bowel sounds are active. No hepato-splenomegaly, or palpable masses. No guarding. SKIN: warm, intact with no suspicious lesions or rash, good texture and turgor. NEURO: awake, alert, and oriented to person, place and time. There were no obvious focal neurologic abnormalities. EXTREMITIES: Left foot tenderness. Moderate swelling and bruising noted to the lateral aspect of the left foot. Limited range of motion of the left foot. Distal neurovascular and motor status intact. Course Course Level of Care: Express Care Visit Vital Signs Vital signs: Vital Signs Temperature 97.9 F 09/10/25 18:58 Pulse Rate 90 09/10/25 18:58 Respiratory Rate 16 09/10/25 18:58 Blood Pressure 132/76 09/10/25 18:58 Pulse Oximetry 100 09/10/25 18:58 Oxygen Delivery Room Air 09/10/25 18:58 Temperature 97.9 F 09/10/25 18:58 Pulse Rate 90 09/10/25 18:58 Respiratory Rate 16 09/10/25 18:58 Blood Pressure 132/76 09/10/25 18:58 Pulse Oximetry 100 09/10/25 18:58 Oxygen Delivery Room Air 09/10/25 18:58 Reviewed Procedures Orthopedic Splinting/Casting Injury #1: Splinting/Casting Date: 09/10/25 Splinting/Casting Time: 19:25 Side: left Lower Extremity Injury Location: foot Lower Extremity Immobilizer: Sergio wrap Pre-Procedure Neuro Vascular Exam: normal Post-Procedure Neuro Vascular Exam: normal Additional Comments: Patient has crutches with her from family member's previous injury. MDM MDM Narrative Medical decision making narrative: Use the RICE method at home. May take ibuprofen and/or Tylenol if needed. If symptoms persist in 1 week after conservative treatment, follow-up with specialist. Differential Diagnosis Differential Diagnosis: foot sprain, ankle sprain, foot fracture, ankle fracture Imaging Data Radiologist's impression: ITS Impressions Foot X-Ray 09/10/25 19:07 IMPRESSION: 1. No significant plain radiographic abnormalities of the left foot other than mild arthritis of talonavicular and mid tarsal joints [address] [address] XRay Report Signed Patient: Octavia Gustafson : 2000 MR#: [id number] Age: 25 Acct:[id number] Loc: [facility] ADM Date: 09/10/[address]: Ordering Physician: Lottie Augustin APRN Date of Service: 09/10/25 Procedure(s): XR foot LT min 3V Accession Number(s): [id number] cc: Lottie Augustin APRN; INTEGRATED CIRCUIT DESIGN ENGINEER PHYSICIAN~ EXAMINATION: XR foot LT min 3V DATE: 09/10/2025 19:06 INDICATION: Left foot pain. No mention of trauma. TECHNIQUE: 3 views of the left foot were obtained. COMPARISON: None. FINDINGS: No acute bony lesions of the left foot. Normal alignment at the joints including Lisfranc joints. Soft tissues are unremarkable. 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 IMPRESSION: 1. 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 OS ADMINISTRATOR Please be advised this is a medical document. It is intended for [id number] communication. It is written in medical language and may contain unfamiliar abbreviations or verbiage. Medical documents are intended to carry relevant information, facts as evident, and the clinical opinion of the practitioner at the time of the encounter. This report may have been done utilizing a voice recognition system. Attempts have been made to correct errors. However, there may be uncorrected grammatical, spelling, and recognition errors present. The file time of this note does not necessarily represent the time of service. Dictated By: Flroence Ramesh 09/10/251906 Signed By: <Electronically signed by Florence Ramesh in OV> 09/10/251907 Critical Care Time Critical Care Time Critical Care Time: No Discharge Plan Discharge Clinical Impression: Sprain of left foot Qualifiers: Encounter type: initial encounter Qualified Code(s): S93.602A - Unspecified sprain of left foot, initial encounter Patient Disposition: Home Condition: Stable Instructions: Foot Sprain (ED), P.R.I.C.E. Treatment (ED) Additional Instructions: Use the RICE method at home. May take ibuprofen and/or Tylenol if needed. If symptoms persist in 1 week after conservative treatment, follow-up with specialist. Please have repeat radiographs in 7-10 days if pain and swelling persists. Patient Language: Ukrainian Prescriptions: No Action sertraline 100 mg tablet 150 mg DAILY Follow-up/Referrals: Riccardo Wilson MD [Physician, Orthopedics] PHYSICIAN,INTEGRATED CIRCUIT DESIGN ENGINEER [Primary Care Provider, Internal Medicine] Time of Disposition: 19:30
[2025-09-10 18:58] VITALS: BP 132/76; PULSE 90; RESP 16; TEMP 36.6; O2SAT 100
--- OUTSIDE RECORDS SUMMARY | 2025-09-10 19:16 | XMS_ITS | Clinical Summary ---
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 Datinst T US Labs: O+/I/-/-/HIV RPR [...] word for if she changes her mind. [place]. Obesity (BMI 33): Early 1 hr 131, [...] Recommend therapy - referral list sent via [employer] GAD7: 9 (09/22), discussed with patient option [...] Cessation:Counseling Given: Not Answered Social Connection and Isolation Panel Answer Date Recorded In a typical week, how many times do you talk on the phone with family, friends, or neighbors? More than three times a week 12/28/2024 How often do you get togethe r with friends or relatives? More than three times a week 12/28/2024 How often do you attend [facility] or moravian services? More than 4 times per year 12/28/2024 Do you belong to any clubs o r organizations such as hindu groups, unions, fraternal or athletic groups, or [...] staff should administer the PHQ-9) 0 12/28/2024 [facility] - Occupational Stress Questionnaire Answer Date [...] things needed for daily living? No 12/28/2024 [place] Depression Scale Answer Date Recorded [place] Depression Scale Total 4 02/13/2025 The thought [...] in the past 12 m [facility], were you homeless or living in a chcf (including now)? No 12/28/2024 Personal Safety Answer [...] Epidur al N Livin g 8 [address] [place] Kimberley Long am, MD Complications:Other Excessiv e Bleeding Delivery Location:[facility] Main C ampus ([facility]) 2024 Term 37w 3d 0h 03m 0h 03m 3.23 kg (7 lb 1.9 oz) F C-Sec tion Spinal Livin g 4 3 GirlEm nancy Molina, Claudio Barr MD Complications:None Delivery Location:[facility] Main C ampus (E L AND [...] HPV Vaccines (1 - 3-dose series) 2016 Cervical Cancer Screening 08/06/2023 08/06/2022 Regular Well Visit/Exam 18-64 08/06/2023 08/06/2022 Covid-19 Vaccine (3 - 2024-2 6 season) 2025 06/12/2021, 05/15/2021 Influenza Vaccine (#1) 2025 8, [...] trachomatis Amplification Urine (06/13/2024 11:15 AM CDT) [facility] C. trachomatis Not Detected [facility] Comment:Testing performed by : [facility], [address] [place] [address]., [id number] N. gonorrhoeae Not Detected AMELIA VARGAS Comment: Interpretive Data This assay detects Chlamydia trachomatis and Neisseria gonorrhoeae by nucleic acid amplification testing (NAAT). This assay has been cleared by the [place] Food and Drug administration. The performance characteristics of this test have been verified by the [facility] Molecular Infectious Disease laboratory. The performance characteristics of this test have not been evaluated in individuals less than 14 years of age. Current Interpretive Data was last revised on 2023. Testing performed by: [facility], [address] [place] [address]., [id number] Urine (None) 06/13/2024 11:1 5 AM CDT 06/13/2024 11:45 PM CDT Claudio Grajeda MD LAB MICROBIOLOGY - GENERAL ORDERABLES Final Result AMELIA [id number] [facility] Department [place] [address] [facility] * Hepatitis C antibody Blood (05/25/2024 1:38 PM CDT) [facility] Hep C Ab Nonreactive Nonreactive Comment: Antibodies [...] AL ORDERABLES Edited Result - Final AMELIA [id number] [facility] Department of Laboratories [place], [place] [id number] * Pap with reflex to High Risk HPV (08/06/2022 11:00 AM CDT) Thin prep (Pap test) 08/06/2022 11:00 AM CDT 08/06/2022 11:00 AM CDT Narrative PATHOLOGY [facility] - 08/10/2022 11:54 AM MULT AU MATIC OPERATOR [facility] Department of Pathology [address] [place], [place] [id number] Final Report Note to Patients: This report [...] the details. Patient Name: AUSTYN MILLAN Address: [address] [place] [address] Gender: F : 2000 (Age: 22) Service: Laboratory Location: N : [id number] [facility] #: [id number] Patient Type: [facility] SPECIMEN Taken: 08/06/2022 Received: 08/06/2022 Accessioned:: 08/09/2022 Reported: 08/10/2022 Physician(s): Gretchen Holden M.D. [facility] Diagnosis: Source of Specimen: Imaged Thinprep Pap Test w/ Reflex HPV - Tobacco Scrap Sifter Cytologic Material Specimen Adequacy: - Satisfactory for evaluation; endocervical/transformation zone component present General Category: - Negative for intraepithelial lesion or malignancy Interpretation/Results: - Numerous inflammatory cells present ALLEN Schmidt(ASCP) Report Electronically Reviewed and Signed Out By ALLEN Schmidt(ASCP) 08/10/2022 11:54:25Specimen(s) Received: A: Imaged Thinprep Pap Test w/ Reflex HPV - Tobacco Scrap Sifter Cytologic Material Clinical History: Last Menstrual Period: [...] determined by the Surgical Pathology Department at [facility] as part of an ongoing quality control lab technician program and in compliance with federally mandated [...] determined by the Surgical Pathology Department [facility]. It has not been cleared or approved by the [place]. [place]. Food and Drug Administration. Alie Holden MD LAB CYTOLOGY ORDERABLES Fi nal Result PATHOLOGY [facility] from Last 3 Months or Most Recently Relevant to Health Maintenance Additional Health Concerns Active Problems Noted Date Diagnosed Date OB Reminders 10/24/[address] CHOICE PLUS CHOICE PLUS Advance Directives For more information, please contact: [phone] * Full Code (Latest Code Status on [...] c ase of cardiopulmonary arrest Care Teams C Application Developer Relationship Specialty Start Date End Date No, Physician PCP - General 07/06/22 Mallory Barker NP 07/06/22
--- OUTSIDE RECORDS SUMMARY | 2025-09-10 19:16 | XMS_ITS | Clinical Summary ---
Author Organization [facility] Address [address] [place] [id number] Care Team Providers Care Materials Specialist Name Role Phone None, Provider MD Primary Care Provider Unavaila ble Allergies Active Allergy Reactions Criticality Noted Date Comments Latex Unknown 06/24/2022 Medications sertraline (ZOLOFT) 50 MG tabletIndicatio ns:Anxiety,Recu rrent major depressive disorder, in partial remission Take 1 tablet (50 mg total) by mouth daily. 30 tablet 1 Active Additional Information Patient taking differently: 100 mgOral Daily, Reported on 05/17/2025 Active Problems Problem Noted Date Diagnosed Date Closed nondisplaced fracture of neck of right ta jyoti 01/31/2018 Immunizations Immunization Administration Dates Next Due Comvax 01/03/2002 DTaP (Daptacel) 03/07/2007, 3,01/03/2002,05/2002,2001 Hepatitis A (Generic) 04/28/2017,06/20/2013 Hepatitis B 04/28/2017,2001,2001 Hib (Generic) 03/22/2013, 3,2001,08/05 Influenza (Generic) 07/21/2018,201 7,07/11/2015,08/03,07/17/2013 MENINGOCOCCAL A C Y&W-135 oligosaccharide (MENVEO) 06/20/2013 MMR 07/09/2002 Menactra 06/28/2019 Meningcoccal Group B (Bexser o)(aka Meningitis) 06/28/2019 Pneumococcal (Prevnar 7) 10/09/2002,04/0 12/2001,2001,08/05 Polio IPV (Ipol) 03/08/2007,,2001,08/05 Tdap (Adacel) 03/22/2013 Varicella Vaccine 07/09/2002 Varicella/MMR [...] Information Value Date Recorded Sex Assigned at Female 05/17/2025 5:53 PM CDT Legal Sex Female 5:35 PM CDT Gender Identity Not on file Sexual Orientation Not on file Last Filed Vital Signs Vital Sign Reading Time Taken Comments Blood Pressure 140/77 05/17/2025 8:00 PM CDT Pulse 68 05/17/2025 6:00 PM CDT Temperature 36.7 C (98.1 F) 05/17/2025 6:00 PM CDT Respiratory Rate 18 05/17/2025 6:00 PM CDT Oxygen Saturation 97% 05/17/2025 8:00 PM CDT Inhaled Oxygen Concentration - - Weight 88.5 kg (195 lb) 05/17/2025 6:00 PM CDT Height 162.6 cm (5' 4) 05/17/2025 6:00 PM CDT Body Mass Index 33.47 05/17/2025 6:00 PM CDT Plan of Treatment Health Maintenance Due Date Last Done Comments HPV Vaccines (1 - 3-dose series) 2016 Hepatitis C 2019 Meningococcal B Vaccine (2 of 2 - Bexsero SCDM 2-dose series) 12/27/2019 06/28/2019 Annual Physical 05/22/2021 05/22/2020 COVID-19 Vaccine (1 - season) 2025 Influenza Adult (#1) 2025 07/21/2018, 08/09/2017, 07/11/2015, Additional history exists Cervical Cancer Screening Pap Smear (Age 21 to 29) Every 3 Years 08/06/2025 08/06/2022 Cervical Cancer Screening 08/06/2025 DTaP, Tdap and Td Vaccines (9 - Td or Tdap) 11/07/2034 11/07/2024, 09/22/2023, 03/22/2013, Additional history exists Pneumococcal Vaccine: Pediatrics (0 to 5 Years) and At-Risk Patients (6 to 49 Years) Aged Out 10/09/2002, 01/03/2002, 2001, Additional history exists No longer eligible based on patient's age to complete this topic Hepatitis A Vaccines Completed 04/28/2017, 06/20/20 13 Hepatitis B Vaccines Completed 04/28/2017, 01/03/2002, 2001, Additional history exists Meningococcal Vaccine Completed 06/28/2019, 013 RSV Immunizations Under 20 Months Aged Out No longer eligible based on patient's age to complete this topic Insurance [facility] Care Teams Materials Specialist Relationship Specialty Start Date End Date None, Provider, PCP - General 06/24/22
--- OUTSIDE RECORDS SUMMARY | 2025-09-10 19:16 | XMS_ITS | Encounter Summary ---
Author Organization [facility] Address [address] [place] [id number] Care Team Providers Care Manager Investigations Name Role Phone Mallory Barker Primary Care Provider [phone] None, Provider Primary Care Provider Unavaila ble Encounter Details Date Type Department Care Team (Late st Contact Info) Description 10/29/2021 OnAppt Message Enc [facility] - [place] [address] [place] [address] Mallory Barker APNP [address] [place] [address] Medication Social History Tobacco Use Types Packs/Day [...] Total Score: 5 08/14/20 21 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
== END 2025-09-10 19:32 | disposition home or self-care (01) ==
PROVIDERS: Emergency Provider Nurse Practitioner
DX: S93.602A Unspecified sprain of left foot, initial encounter (principal); W01.0XXA Fall on same level from slipping, tripping and stumbling without subsequent striking against object, initial encounter
CPT/HCPCS: 73630; 99213; G0463